=== PATIENT | female | born 1935 | race Caucasian/White ===

== ENCOUNTER 2017-06-23 15:22 | Emergency (ER) | payer MEDICARE, OTHER ==
[~2017-06-23] VITALS: Ht 162.6 cm; Wt 133.8 kg
--- NOTE | ~2017-06-23 | CR141 ---
[facility] A Service of [facility] RADIOLOGY TEXT RESULTS PATIENT: OSWALD AHUJA LOCATION: [facility] : 37 UNIT #: [id number] AGE: [address]: Bran Chairez MD SEX: F ORDER DR: [id number] [facility] [address] [place], [place] [address] [id number] E MR#: [id number] Acc #: [id number] NAME: OSWALD AHUJA : 1935 SEX: F STUDY DATE/TIME: 06/23/2017 18:14 UNIT: [facility] ROOM: STUDY DESCRIPTION: CR Hand Min 3 Views Lt Attending Physician: Bran Chairez M.D. Ordering Physician: Bran Chairez M.D. Primary Care Physician: Yadi Thomas M.D. MEDICAL IMAGING REPORT This report is preliminary unless electronic signature is present EXAM Left hand 3 views 06/23/2017 1814 hours HISTORY Patient fell out of bed today with left hand and shoulder pain with bruising. COMPARISON None. FINDINGS AP, lateral and oblique views suggest osteopenia. The distal radius and ulna are intact. There is osteoarthritis at the first carpometacarpal joint and chondrocalcinosis at the triangular fibrocartilage. No carpal bone fracture is seen. There is angulation at the distal fifth metacarpal which could represent an old healed fracture. No definite acute fracture seen. Fingers are intact. IMPRESSION 1. 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 2. There is some bowing deformity of the distal fifth metacarpal without definite cortical step off. This could represent an old healed fracture. No finger fracture seen. STAT * RESULT Dictated by... [facility] A Service of [facility] RADIOLOGY TEXT RESULTS PATIENT: OSWALD AHUJA [id number] : 37 UNIT #: [id number] AGE: [address]: Bran Chairez MD SEX: F ORDER DR: Christi Jo M.D. THIS IS AN ELECTRONICALLY VERIFIED REPORT Christi Jo M.D. at 06/23/2017 8:26 PM ELISABETH/tammy TD: 06/23/2017 18:42 JOB #: [id number] MEDICAL IMAGING REPORT Page 1 of 1 COPY
--- NOTE | ~2017-06-23 | CR229 ---
[facility] A Service of [facility] RADIOLOGY TEXT RESULTS PATIENT: OSWALD AHUJA LOCATION: [facility] : 36 UNIT #: [id number] AGE: [address]: Bran Chairez MD SEX: F ORDER DR: [id number] [facility] [address] [place], [place] [address] [id number] E MR#: [id number] Acc #: [id number] NAME: OSWALD AHUJA : 1935 SEX: F STUDY DATE/TIME: 06/23/2017 18:19 UNIT: [facility] ROOM: STUDY DESCRIPTION: CR Shoulder Min 2 View Lt Attending Physician: Bran Chairez M.D. Ordering Physician: Bran Chairez M.D. Primary Care Physician: Yadi Thomas M.D. MEDICAL IMAGING REPORT This report is preliminary unless electronic signature is present EXAM Left shoulder 3 views, 06/23/2017 18:19 hours HISTORY 82-year-old woman who fell out of bed today. Left shoulder pain with bruising. COMPARISON None FINDINGS AP views in internal-external rotation and a scapula Y-view demonstrate normal bone density. There is no fracture or dislocation. IMPRESSION Negative left shoulder. Dictated by... Christi Jo M.D. THIS IS AN ELECTRONICALLY VERIFIED REPORT Christi Jo M.D. at 06/24/2017 9:08 AM Wendy TD: 06/24/2017 08:10 JOB #: [id number] MEDICAL IMAGING REPORT Page 1 of 1 COPY
--- NOTE | ~2017-06-23 | CT71 ---
[facility] A Service of [facility] RADIOLOGY TEXT RESULTS PATIENT: OSWALD AHUJA LOCATION: [facility] : 37 UNIT #: [id number] AGE: [address]: Bran Chairez MD SEX: F ORDER DR: [id number] [facility] [address]. [place], [place] [address] [id number] E MR#: [id number] Acc #: [id number] NAME: OSWALD AHUJA : 1935 SEX: F STUDY DATE/TIME: 06/23/2017 17:24 UNIT: [facility] ROOM: STUDY DESCRIPTION: CT Head Wo Contrast Attending Physician: Barn Chairez M.D. Ordering Physician: Bran Chairez M.D. Primary Care Physician: Yadi Thomas M.D. MEDICAL IMAGING REPORT This report is preliminary unless electronic signature is present EXAM Head CT without contrast, 06/23/2017 HISTORY Diffuse head pain today status post fall out of bed today, congestive heart failure, hypertension and diabetes. TECHNIQUE This CT exam was performed with one or more of the following radiation dose reduction techniques: automatic exposure control, adjustment of mA and/or kV according to patient size, and iterative reconstruction. FINDINGS Multiple axial images were obtained from the skull base to vertex without intravenous contrast administration. There is generalized enlargement of the ventricles and sulci characteristic of atrophy and there is periventricular microvascular white matter ischemic change. Old lacunar infarcts are seen along the right side of the shannan, the thalamic nuclei and lentiform nuclei bilaterally. There is no midline shift. There is no mass or mass effect, hemorrhage or acute infarct. The visualized paranasal sinuses are clear. IMPRESSION Generalized atrophy and periventricular microvascular white matter ischemic change. Old lacunar infarcts as noted above. No acute intracranial abnormality. Dictated by... Anastacio Gotti M.D. [facility] A Service of [facility] RADIOLOGY TEXT RESULTS PATIENT: OSWALD AHUJA LOCATION: [facility] : 37 UNIT #: [id number] AGE: [address]: Bran Chairez MD SEX: F ORDER DR: THIS IS AN ELECTRONICALLY VERIFIED REPORT Anastacio Gotti M.D. at 06/24/2017 10:21 AM JESUS/elvin TD: 06/24/2017 07:12 JOB #: [id number] MEDICAL IMAGING REPORT Page 1 of 1 COPY
--- NOTE | ~2017-06-23 | EKG ---
PATIENT: OSWALD AHUJA UNIT #: [id number] Ventricular Rate: 88 BPM Atrial Rate: 88 BPM P-R Interval: 216 ms QRS Duration: 138 ms Q-T Interval: 394 ms QTC Calculation(Bezet): 476 ms P [place]: 25 degrees Calculated R [place]: -35 degrees Calculated T [place]: 61 degrees Diagnosis Line: Sinus rhythm with 1st degree A-V block with Diagnosis Line: Premature supraventricular complexes Diagnosis Line: Left axis deviation Diagnosis Line: Right bundle branch block Diagnosis Line: Inferior infarct , age undetermined Diagnosis Line: Abnormal ECG Diagnosis Line: No previous ECGs available Diagnosis Line: Confirmed by ROSALVA CHACON MD ([id number]) on 06/24/2017 Diagnosis Line: 7:11:42 PM INTERPRETING MD: INES MESSINA
[2017-06-23 17:23] LABS: BASOPHIL% 0.2 % (0-2.5); EOSINOPHIL% 0.3 % (0.0-7.0); HEMATOCRIT 35.7 % (35.0-45.0); HEMOGLOBIN 11.5 gm/dL (12.0-16.0); LYMPHOCYTE% 9.2 % (17.0-45.0); MEAN CELL VOLUME 87.2 FL (83-96); MEAN CORPUSCULAR HEMOGLOBIN 28.1 PG (28-34); MEAN CORPUSCULAR HGB CONC 32.2 g/dL (30-36); MEAN PLATELET VOLUME 8.7 FL (6.5-11.5); MONOCYTE# 0.6 X10e3 (0-1.0); MONOCYTE% 5.2 % (3.0-12.0); NEUTROPHIL# 9.4 X10e3 (1.5-7.1); NEUTROPHIL% 85.1 % (40-75); PLATELET COUNT 176 X10e3 (140-420); RED CELL DISTRIBUTION WIDTH 16.4 % (11.0-15.5)
[2017-06-23 17:26] LABS: DIFF IND NO
[2017-06-23 17:30] LABS: POC - CKMB 3.3 ng/mL (0.0-7.9); POC - TROPONIN <0.05 ng/mL (<=0.05)
[2017-06-23 17:50] LABS: ALBUMIN SERUM 3.5 g/dL (3.5-5.0); BILIRUBIN, DIRECT 0.1 mg/dL (0.0-0.2); BILIRUBIN,INDIRECT 0.1 mg/dL (0.0-0.9); BILIRUBIN,TOTAL 0.2 mg/dL (0.2-2.0); BUN/CREATININE RATIO 23.07; CALCIUM SERUM 9.6 mg/dL (8.4-10.2); CREATININE SERUM 1.3 mg/dL (0.6-1.4); GLOM FILT RATE Estimated 38.4 mL/min (>60); POTASSIUM 5.4 mmol/L (3.5-5.1); PROTEIN TOTAL SERUM 7.1 g/dL (6.0-8.3)
[2017-06-23 17:52] LABS: URINE SOURCE CLEAN CATCH
[2017-06-23 18:04] LABS: URINE APPEARANCE CLEAR; URINE BILIRUBIN NEG (NEG); URINE BLOOD 1+ (NEG); URINE COLOR YELLOW; URINE GLUCOSE NEG (NEG); URINE KETONE NEG (NEG); URINE LEUKOCYTE ESTERASE 1+ (NEG); URINE NITRATE NEG (NEG); URINE PH 5.5 (5-8); URINE PROTEIN TRACE (NEG); URINE SPECIFIC GRAVITY 1.012 (1.003-1.035); URINE UROBILINOGEN 0.2 MG/DL (NEG)
[2017-06-23 18:07] LABS: CULTURE INDICATED? YES; URBCS1 AUWI 0-2 /[HPF] (0-2); URINE BACTERIA AUWI 2+ (NEGATIVE); URINE SQUAMOUS EPITHELIAL CELL OCC /[HPF]
[2017-06-23 18:56] LABS: POC - CKMB 4.3 ng/mL (0.0-7.9); POC - TROPONIN <0.05 ng/mL (<=0.05)
== END 2017-06-23 21:20 | disposition home or self-care (01) ==
LOC: CED 15:22
PROVIDERS: Emergency Medicine
DX: E87.5 Hyperkalemia (principal); J44.9 Chronic obstructive pulmonary disease, unspecified; E11.9 Type 2 diabetes mellitus without complications; I50.9 Heart failure, unspecified; W06.XXXA Fall from bed, initial encounter
CPT/HCPCS: 29125; 36415; 51701; 70450; 73030; 73130; 80048; 80076; 81003; 82553; 84484; 85025; 87086; 87088; 87186; 93005; 99285